=== PATIENT | female | born 1950 | race African-American/Black ===

== ENCOUNTER 2018-09-08 09:46 | Emergency (ER) | payer MEDICARE, MEDICAID ==
[~2018-09-08] VITALS: Ht 160 cm; Wt 104.0 kg
[2018-09-08 13:47] VITALS: BP 142/100
[2018-09-08] MEDS ORDERED: AZITHROMYCIN 500 MG TABLET PO ONE (14:30)
[2018-09-08] MEDS ORDERED: CEFTRIAXONE SODIUM 250 MG/VIAL IM ONE (14:30)
[2018-09-08] MEDS ORDERED: LIDOCAINE HCL 1% 20ML VIAL (Pyxis) INJ INFIL ONE (14:30)
[2018-09-08] MEDS ORDERED: FLUCONAZOLE 100MG TABLET PO ONE (15:00)
[2018-09-11 08:13] LABS: CHLAMYDIA TRACHOMATIS NAA Negative (Negative); NEISSERIA GONORRHOEAE NAA Negative (Negative)
== END 2018-09-08 15:57 | disposition home or self-care (01) ==
LOC: ER 14:12
DX: N76.0 Acute vaginitis (principal); I10 Essential (primary) hypertension; Z90.710 Acquired absence of both cervix and uterus
CPT/HCPCS: 87210; 87491; 87591; 96372; 99283; J0696; J3490